=== PATIENT | male | born 1955 | race Caucasian/White ===

== ENCOUNTER 2018-05-08 20:23 | Inpatient (IN) | payer OTHER ==
[~2018-05-08] VITALS: Ht 182.9 cm; Wt 74.9 kg
[~2018-05-08 20:23] MED LIST: LIPITOR5 MG PO
[2018-05-08 21:56] LABS: HEMATOCRIT 40.2 % (38.0-50.0); HEMOGLOBIN 14.5 G/DL (12.5-16.6); MCH 34.8 PG (29.0-34.0); MCHC 36.1 G/DL (30.0-36.0); MCV 96.4 FL (86-99); PLATELET COUNT 234 K/uL (156-360); RBC DIS.WIDTH-CV 11.6 % (11.8-14.6); RBC DIS.WIDTH-SD 41.4 % (39-53); RED BLOOD COUNT 4.17 M/uL (4.00-5.50); WHITE BLOOD COUNT 6.8 K/uL (4.1-10.2)
[2018-05-08 22:06] LABS: ALBUMIN 3.9 g/dL (3.2-4.8); CHLORIDE 95 mEq/L (99-109); POTASSIUM 3.6 mEq/L (3.7-5.4); SODIUM 137 mEq/L (136-147)
[2018-05-08 22:08] LABS: GLUCOSE 116 mg/dL (70-99); TOTAL PROTEIN 6.9 g/dL (6.4-8.3)
[2018-05-08 22:10] LABS: TOTAL BILIRUBIN 0.5 mg/dL (0.0-1.0)
[2018-05-08 22:12] LABS: ALKALINE PHOSPHATASE 63 IU/L (3-129); CREATININE 5.5 mg/dL (0.6-1.3); GFR ESTIMATE (CALCULATED) 11 mL/min/ (58.99-99999)
[2018-05-08 22:13] LABS: UREA NITROGEN (BUN) 64 mg/dL (9-23)
[2018-05-08 22:14] LABS: AST (GOT) 30 IU/L (2-34)
[2018-05-08 22:15] LABS: ALT (GPT) 29 IU/L (3-49)
[2018-05-08 22:20] LABS: TROP-I INTERPRETATION NEGATIVE; TROPONIN-I < 0.01 ng/mL (0.0-0.30)
[2018-05-08 22:25] LABS: APPEARANCE CLEAR ((CLEAR)); BILIRUBIN NEGATIVE; BLOOD SMALL; COLOR YELLOW ((YELLOW)); GLUCOSE (STRIP) NEGATIVE; KETONES NEGATIVE; LEUKOCYTES TRACE; NITRITE NEGATIVE; PROTEIN (STRIP) 30; SPECIFIC GRAVITY 1.012 (1.000-1.030); UROBILINOGEN 0.2 MG/DL (0.2-1.0)
[2018-05-08 22:32] LABS: BACTERIA RARE /HPF; EPITHELIAL CELLS NONE SEEN /HPF; MUCUS TRACE /LPF; RED BLOOD CELLS 0-5 /HPF (0-5)
[2018-05-08] MEDS ORDERED: GABAPENTIN300 MG PO (23:22)
[2018-05-08] MEDS ORDERED: LISINOPRIL20 MG PO ×2 (23:23→23:24)
[2018-05-08] MEDS ORDERED: FLEXERIL10 MG PO (23:23)
[2018-05-08] MEDS ORDERED: NORCO 5/3251 TABLET PO (23:23)
[2018-05-08] MEDS ORDERED: DAILY VALUE1 EACH PO (23:24)
[2018-05-08] MEDS ORDERED: FLONASE16 G1 BOTH NARES (23:24)
[2018-05-08] MEDS ORDERED: CLARITIN,ALAVAR10 MG PO (23:24)
[2018-05-08 23:45] LABS: SERUM ETHYL ALCOHOL < 10 mg/dL
[2018-05-09] VITALS (7 sets, daily range): BP systolic 100–120; BP diastolic 63–83
[2018-05-09 01:15] LABS: ERTH.SED.RATE 36 MM/HR (0-20)
[2018-05-09 01:24] LABS: CREATINE KINASE 538 IU/L (1-294)
[2018-05-09 06:55] LABS: ALBUMIN 3.4 G/DL (3.2-4.8); ALKALINE PHOSPHATASE 48 IU/L (3-129); ALT (GPT) 22 IU/L (3-49); AST (GOT) 23 IU/L (2-34); CHLORIDE 98 MEQ/L (99-109); CREATINE KINASE 400 IU/L (1-294); GFR ESTIMATE (CALCULATED) 17 mL/min/ (58.99-99999); GLUCOSE 108 mg/dL (70-99); MAGNESIUM 2.4 mg/dl (1.3-2.7); PHOSPHORUS 4.5 mg/dL (2.5-4.9); POTASSIUM 3.6 MEQ/L (3.7-5.4); SODIUM 137 MEQ/L (136-147); TOTAL BILIRUBIN 0.6 MG/DL (0.0-1.0); TOTAL PROTEIN 5.7 G/DL (6.4-8.3); UREA NITROGEN (BUN) 57 mg/dL (9-23)
[2018-05-09 07:05] LABS: CREATININE 3.8 MG/DL (0.6-1.3)
[2018-05-10 03:43] VITALS: BP 121/84
[2018-05-10 06:13] LABS: BASOPHIL (%) 1.2 % (0-1); BASOPHIL COUNT 0.1 K/uL (0-0.1); EOSINOPHIL COUNT 0.3 K/uL (0-0.3); HEMATOCRIT 37.7 % (38.0-50.0); HEMOGLOBIN 13.1 G/DL (12.5-16.6); IMMATURE GRANULOCYTE (%) 0.2 % (0.0-0.7); LYMPHOCYTE (%) 35.7 % (15-42); LYMPHOCYTE COUNT 1.8 K/uL (1.0-2.8); MCH 33.3 PG (29.0-34.0); MCHC 34.7 G/DL (30.0-36.0); MCV 95.9 FL (86-99); MONOCYTE (%) 13.6 % (3-12); MONOCYTE COUNT 0.7 K/uL (0-0.8); NEUTROPHIL (%) 44.3 % (45-76); NEUTROPHIL COUNT 2.2 K/uL (1.8-6.4); PLATELET COUNT 230 K/uL (156-360); RBC DIS.WIDTH-CV 11.4 % (11.8-14.6); RBC DIS.WIDTH-SD 40.3 % (39-53); RED BLOOD COUNT 3.93 M/uL (4.00-5.50)
[2018-05-10 06:39] LABS: ALBUMIN 3.4 G/DL (3.2-4.8); CHLORIDE 106 MEQ/L (99-109); GLUCOSE 95 mg/dL (70-99); POTASSIUM 3.9 MEQ/L (3.7-5.4); SODIUM 142 MEQ/L (136-147); UREA NITROGEN (BUN) 32 mg/dL (9-23)
[2018-05-10 06:41] LABS: CREATININE 1.5 MG/DL (0.6-1.3); GFR ESTIMATE (CALCULATED) 51 mL/min/ (58.99-99999); PHOSPHORUS 2.6 mg/dL (2.5-4.9)
[2018-05-10 07:31] VITALS: BP 123/77
[2018-05-10 12:32] LABS: CREATININE 1.5 MG/DL (0.6-1.3)
[2018-05-10 12:46] LABS: UR CREATININE CONCENTRATION 95.8 MG/DL
== END 2018-05-10 11:45 | disposition home or self-care (01) | DRG 683 ==
LOC: EME → EDBD 20:23 → 5SOUTH 23:27 → EDOF 23:27 → ENRESERV 23:28 → 5SOUTH 05-09 00:01 → EDOF 05-09 00:01 → ENRESERV 05-09 00:02 → 5SOUTH 05-09 00:30
PROVIDERS: Emergency Medicine; Hospitalist; Internal Medicine Nephrology; Physician Assistant Medical
DX: N17.9 Acute kidney failure, unspecified (principal); M62.82 Rhabdomyolysis; E86.0 Dehydration; T46.4X5A Adverse effect of angiotensin-converting-enzyme inhibitors, initial encounter; T39.315A Adverse effect of propionic acid derivatives, initial encounter; I95.9 Hypotension, unspecified; G89.29 Other chronic pain; M48.061 Spinal stenosis, lumbar region without neurogenic claudication; F10.20 Alcohol dependence, uncomplicated; I10 Essential (primary) hypertension; E78.5 Hyperlipidemia, unspecified
CPT/HCPCS: 71046; 76770; 80053; 80069; 81003; 81050; 82436; 82550; 82550 91; 82570; 82575; 82948; 83735; 83930; 83935; 84100; 84133; 84156; 84300; 84484; 85025; 85027; 85651; 93005; 93975; 99281; 99284; G0480; J1644; J3411; J7030